=== PATIENT | male | born 1950 | race Caucasian/White ===

== ENCOUNTER 2019-12-13 07:54 | Outpatient (CLI) | payer MEDICARE, MEDICAID, SELFPAY ==
[2019-12-13 08:00] VITALS: PULSE 91; O2SAT 93
[2019-12-13 08:05] VITALS: PULSE 134; O2SAT 86
[2019-12-13 08:10] VITALS: PULSE 140; O2SAT 87
[2019-12-13 08:15] VITALS: PULSE 142; O2SAT 88
[2019-12-13 08:20] VITALS: PULSE 136; O2SAT 91
[2019-12-13 08:35] VITALS: PULSE 95; O2SAT 92
--- NOTE | 2019-12-13 09:49 | HOMEO2EVAL ---
Home Oxygen Evaluation RC: Home Oxygen (O2) Evaluation Start: 12/13/19 09:45 Freq: Status: Active Protocol: RPE Activity Type Activity Date Activity User E-Sign Co-Sign Detail Recorded Client Recorded Date Recorded By Document 12/13/19 08:00 [email or web address] [email or web address] 12/13/19 09:49 DJO Document 12/13/19 08:05 [email or web address] 12/13/19 09:49 DJO Document 12/13/19 08:10 [email or web address] [email or web address] 12/13/19 09:49 DJO Document 12/13/19 08:15 [email or web address] [email or web address] 12/13/19 09:49 DJO Document 12/13/19 08:20 [email or web address] 12/13/19 09:49 DJO Document 12/13/19 08:35 [email or web address] [email or web address] 12/13/19 09:49 DJO 12/13/19 12/13/19 12/13/19 08:00 08:05 08:10 Home O2 Evaluation Test Phase Resting Exercise Exercise Oxygen Delivery Room Air Room Air Nasal Cannula Oxygen Flow Rate (L/min) 1 Pulse Oximetry (90-100 %) 93 86 L 87 L Pulse Rate (60-100 beats/min) 91 134 H 140 H Activity Tolerance Ambulation Distance (feet) Treatment Charges O2 Evaluation 12/13/19 12/13/19 12/13/19 08:15 08:20 08:35 Home O2 Evaluation Test Phase Exercise Exercise Resting Oxygen Delivery Nasal Cannula Nasal Cannula Room Air Oxygen Flow Rate (L/min) 2 3 Pulse Oximetry (90-100 %) 88 L 91 92 Pulse Rate (60-100 beats/min) 142 H 136 H 95 Activity Tolerance Good Ambulation Distance (feet) 500 Treatment Charges
== END 2019-12-13 07:55 | disposition home or self-care (01) ==
PROVIDERS: PCP Internal Medicine; Visit Provider Nurse Practitioner Family
DX: R06.02 Shortness of breath (principal)
CPT/HCPCS: 94618

== ENCOUNTER 2020-02-12 07:50 | Outpatient (CLI) | payer MEDICARE, MEDICAID, SELFPAY ==
--- NOTE | ~2020-02-12 | CT_ITS ---
EXAMINATION: CT chest high resolution wo sd EXAM DATE: 02/12/2020 08:24 INDICATION: COPD J44.9 Chronic obstructive pulmonary disease, unspecified. TECHNIQUE: Spiral CT of the chest without contrast. HRCT. Axial, coronal and sagittal images were re viewed. Coronal maximum intensity pixel images of chest reviewed. The dose-length product (DLP) for this examination was 271.97 mGy-cm. The exposure was tailored according to patient size (auto mA ex posure control), and iterative reconstruction (ASIR) was used as additional dose reduction technique. Comparison is made to prior examination from 01/03/2019. FINDINGS: There is moderate emphysema. No intralobular septal thickening to suggest interstitial josé g disease. There is interval progression in the amount of right lower lobe and right middle lobe mult isegmental round atelectasis. Previously seen left lower lobe and lingular subsegmental atelectasis a ppears unchanged. There are moderate to large right, and moderate left pleural effusions, mostly subp ulmonic position. Pleural effusions have increased compared to 2019. Tracheobronchial tree is patent. There is no mediastinal, hilar or axillary lymphadenopathy. There is no pneumothorax. Heart no rmal in size. There is moderate to severe coronary arterial calcification, arterial sclerosis. Upp er abdomen is unremarkable. There is thoracic spondylosis without osteoblastic or osteolytic lesion s identified. IMPRESSION: 1. Increase in size of moderate to large right and moderate left pleural effusions. 2. Increase in amount of multisegmental right basilar atelectasis. Stable left basilar segmental ate lectasis. 3. Moderate emphysema unchanged. Reviewed, dictated and finalized at location [facility] IMPRESSION: 1. Increase in size of moderate to large right and moderate left pleural effus ions. 2. Increase in amount of multisegmental right basilar atelectasis. Stable left basilar segmental atelectasis. 3. Moderate emphysema unchanged.
== END 2020-02-12 07:51 | disposition home or self-care (01) ==
LOC: ANHIMG 07:56
PROVIDERS: PCP Internal Medicine; Visit Provider Internal Medicine Critical Care Medicine
DX: J44.9 Chronic obstructive pulmonary disease, unspecified (principal); J98.11 Atelectasis
CPT/HCPCS: 71250